=== PATIENT | female | born 1940 | race Caucasian/White ===

== ENCOUNTER 2017-09-24 23:02 | Inpatient (IN) ==
[2017-09-25] MEDS ORDERED: SODIUM CHLORIDE 0.9% 2,150 ML IV ONE (00:23)
[2017-09-25] MEDS ORDERED: CEFEPIME 2,000 MG in SODIUM CHLORIDE 0.9% 100 ML IV STA (00:25)
[2017-09-25] MEDS ORDERED: VANCOMYCIN INJ 1,000 MG in SODIUM CHLORIDE 0.9% 250 ML IV STA (00:25)
[2017-09-25] MEDS ORDERED: VANCOMYCIN 1,000 MG VIAL ONE (01:02)
[2017-09-25 01:06] LABS: Basophils % 0.2 % (0.0-0.8); Eosinophils % 0.2 % (0.00-10.9); Hematocrit 34.6 VOL% (35.7-47.0); Immature Granulocytes % 2.1 %; Immature Granulocytes Absolute 0.42 #; Lymphocytes # 0.8 10*3/uL (1.4-4.0); Lymphocytes % 3.9 % (21.3-54.2); Mean Corpuscular HGB Conc 34.7 GM/DL (32-36); Mean Corpuscular Hemoglobin 32 PG (27-34); Mean Corpuscular Volume 90.8 FL (87-102); Mean Platelet Volume 13.7 FL (9.6-12.0); Monocytes # 1.4 10*3/uL (0.11-0.8); Monocytes % 6.8 % (1.7-12.7); Neutrophils # 17.5 10*3/uL (1.4-7.4); Neutrophils % 86.8 % (38.7-73.9); Platelet Count 132 T/CUMM (130-400); Red Blood Count 3.81 MC/CUMM (3.8-5.5); Red Cell Distribution Width 14.6 % (9.3-17.3); White Blood Count 20.2 T/CUMM (4-12)
[2017-09-25 01:20] LABS: Lactic Acid 0.9 MMOL/L (0.4-2.0)
[2017-09-25 01:27] LABS: Albumin 2.5 G/DL (3.4-5.0); Bilirubin,Total 0.9 MG/DL (0.2-1.0); Calcium 7.7 MG/DL (8.5-10.1); Osmolality,Calculated 284.8 MOS/KG (273-304); Potassium 3.5 MMOL/L (3.5-5.1); Total Protein 5.6 G/DL (6.4-8.3)
[2017-09-25] MEDS ORDERED: ONDANSETRON 4 MG/2 ML VIAL ONE (07:54)
[2017-09-25] MEDS: SODIUM CHLORIDE 0.9% 1,000 ML IV SCH (08:10)
[2017-09-25] MEDS: ONDANSETRON 4 MG/2 ML VIAL IV PRN (08:10)
[2017-09-25 10:33] LABS: Apearance,Urine SLIGHTLY HAZY (Clear); Glucose,Urine (UA) Negative (Negative); Ketones,Urine Negative (Negative); Nitrite,Urine Negative (Negative); Protein,Urine Negative; Urine Color Yellow (Yellow); Urine Specific Gravity 1.004 (1.001-1.035)
[2017-09-25 10:34] LABS: Bacteria,Urine Occasional /HPF (Few); Bilirubin,Urine Negative (Negative); Blood, Urine Moderate mg/dL (Negative); RBC,Urine 6 /HPF (0-4); Squamous Epithelial Cell,Urine Occasional /HPF (0-10); Urine Urobilinogen < 2.0 EU/DL (0.2-1.0); WBC,Urine 20 /HPF (0-6)
[2017-09-25 10:35] LABS: Mucus,Urine Occasional /LPF (Occasional); Waxy Casts,Urine Few /LPF (<1)
[2017-09-25 10:47] LABS: Hypochromasia Slight; Macrocytosis 1+; Platelet Estimate Decreased
[2017-09-25] MEDS ORDERED: ACETAMINOPHEN 325 MG TABLET PO PRN (11:45)
[2017-09-25] MEDS ORDERED: DOCUSATE SODIUM 100 MG CAPSULE PO SCH (21:00)
[2017-09-25] MEDS ORDERED: ZALEPLON 5 MG CAPSULE PO ONE (23:37)
[2017-09-26 04:52] LABS: Basophils % 0.2 % (0.0-0.8); Eosinophils # 0.2 10*3/uL (0.0-0.87); Eosinophils % 1.2 % (0.00-10.9); Hematocrit 32.1 VOL% (35.7-47.0); Hemoglobin 10.9 GM/DL (12.0-16.0); Immature Granulocytes Absolute 0.15 #; Lymphocytes # 0.8 10*3/uL (1.4-4.0); Lymphocytes % 5.4 % (21.3-54.2); Mean Corpuscular Hemoglobin 31 PG (27-34); Mean Corpuscular Volume 91.7 FL (87-102); Mean Platelet Volume 13.3 FL (9.6-12.0); Monocytes # 0.9 10*3/uL (0.11-0.8); Monocytes % 5.9 % (1.7-12.7); Neutrophils # 13.4 10*3/uL (1.4-7.4); Neutrophils % 86.3 % (38.7-73.9); Platelet Count 142 T/CUMM (130-400); Red Cell Distribution Width 14.6 % (9.3-17.3); White Blood Count 15.5 T/CUMM (4-12)
[2017-09-26 05:27] LABS: Albumin 2.4 G/DL (3.4-5.0); Bilirubin,Total 1.1 MG/DL (0.2-1.0); Calcium 8.1 MG/DL (8.5-10.1); Potassium 3.4 MMOL/L (3.5-5.1); Total Protein 5.6 G/DL (6.4-8.3)
[2017-09-26] MEDS ORDERED: HYPROMELLOSE BOTH EYES PRN (09:10)
[2017-09-26] MEDS ORDERED: LORazepam 0.5 MG TABLET PO PRN (09:10)
[2017-09-26] MEDS ORDERED: CYANOCOBALAMIN 1000 MCG/1 ML VIAL IM ONE (09:13)
[2017-09-26] MEDS ORDERED: LEVOFLOXACIN INJ 500 MG in PREMIX 1 EACH IV SCH (09:30)
[2017-09-26] MEDS: SODIUM CHLORIDE 0.9% 1,000 ML IV SCH ×2 (10:15→16:55)
[2017-09-26] MEDS: cloNIDine 0.1 MG TABLET PO SCH ×2 (10:16→22:22)
[2017-09-26] MEDS: amLODIPine 5 MG TABLET PO SCH (10:16)
[2017-09-26] MEDS: PANTOPRAZOLE 40 MG TABLET PO SCH (10:16)
[2017-09-26] MEDS: PREGABALIN 75 MG CAPSULE PO SCH ×2 (10:16→22:22)
[2017-09-26] MEDS: PIOGLITAZONE 15 MG TABLET PO SCH (10:16)
[2017-09-26] MEDS: EZETIMIBE 10 MG TABLET PO SCH (10:16)
[2017-09-26] MEDS: CLORAZEPATE 3.75 MG TABLET PO SCH ×2 (10:21→22:22)
[2017-09-26] MEDS: ONDANSETRON 4 MG/2 ML VIAL IV PRN ×2 (14:06→17:47)
[2017-09-26] MEDS: ZALEPLON 5 MG CAPSULE PO SCH (22:22)
[2017-09-27] MEDS: SODIUM CHLORIDE 0.9% 1,000 ML IV SCH ×2 (04:03→18:53)
[2017-09-27 05:59] LABS: Basophils % 0.3 % (0.0-0.8); Eosinophils # 0.3 10*3/uL (0.0-0.87); Eosinophils % 3.2 % (0.00-10.9); Hematocrit 29.9 VOL% (35.7-47.0); Hemoglobin 9.9 GM/DL (12.0-16.0); Immature Granulocytes % 0.8 %; Immature Granulocytes Absolute 0.08 #; Mean Corpuscular HGB Conc 33.1 GM/DL (32-36); Mean Corpuscular Hemoglobin 31 PG (27-34); Mean Corpuscular Volume 92.6 FL (87-102); Monocytes # 0.7 10*3/uL (0.11-0.8); Monocytes % 6.7 % (1.7-12.7); Neutrophils # 8.2 10*3/uL (1.4-7.4); Platelet Count 163 T/CUMM (130-400); Red Blood Count 3.23 MC/CUMM (3.8-5.5); Red Cell Distribution Width 14.6 % (9.3-17.3); White Blood Count 10.4 T/CUMM (4-12)
[2017-09-27 06:26] LABS: Calcium 8.2 MG/DL (8.5-10.1); Magnesium 1.9 MG/DL (1.8-2.4); Osmolality,Calculated 288.7 MOS/KG (273-304)
[2017-09-27] MEDS ORDERED: CEFEPIME 1,000 MG in SYRINGE 1 EACH IV SCH (08:30)
[2017-09-27] MEDS: EZETIMIBE 10 MG TABLET PO SCH (10:04)
[2017-09-27] MEDS: PREGABALIN 75 MG CAPSULE PO SCH ×2 (10:04→22:05)
[2017-09-27] MEDS: cloNIDine 0.1 MG TABLET PO SCH ×2 (10:05→22:05)
[2017-09-27] MEDS: LEVOFLOXACIN INJ 250 MG in PREMIX 1 EACH IV SCH (10:05)
[2017-09-27] MEDS: PANTOPRAZOLE 40 MG TABLET PO SCH (10:05)
[2017-09-27] MEDS: amLODIPine 5 MG TABLET PO SCH (10:05)
[2017-09-27] MEDS: PIOGLITAZONE 15 MG TABLET PO SCH (10:05)
[2017-09-27] MEDS: CLORAZEPATE 3.75 MG TABLET PO SCH ×2 (10:05→22:05)
[2017-09-27] MEDS: CEFEPIME 1,000 MG in SYRINGE 1 EACH IV SCH ×2 (12:30→22:08)
[2017-09-27] MEDS: ONDANSETRON 4 MG/2 ML VIAL IV PRN (14:31)
[2017-09-27] MEDS: ZALEPLON 5 MG CAPSULE PO SCH (22:04)
[2017-09-28] MEDS: SODIUM CHLORIDE 0.9% 1,000 ML IV SCH ×2 (01:18→08:11)
[2017-09-28 07:53] LABS: Basophils % 0.3 % (0.0-0.8); Eosinophils # 0.3 10*3/uL (0.0-0.87); Eosinophils % 3.9 % (0.00-10.9); Hematocrit 32.3 VOL% (35.7-47.0); Hemoglobin 10.6 GM/DL (12.0-16.0); Immature Granulocytes % 0.7 %; Immature Granulocytes Absolute 0.06 #; Lymphocytes # 0.8 10*3/uL (1.4-4.0); Lymphocytes % 9.3 % (21.3-54.2); Mean Corpuscular HGB Conc 32.8 GM/DL (32-36); Mean Corpuscular Hemoglobin 31 PG (27-34); Mean Corpuscular Volume 94.4 FL (87-102); Mean Platelet Volume 12.6 FL (9.6-12.0); Monocytes # 0.5 10*3/uL (0.11-0.8); Monocytes % 6.2 % (1.7-12.7); Neutrophils % 79.6 % (38.7-73.9); Platelet Count 195 T/CUMM (130-400); Red Blood Count 3.42 MC/CUMM (3.8-5.5); Red Cell Distribution Width 14.6 % (9.3-17.3); White Blood Count 8.8 T/CUMM (4-12)
[2017-09-28] MEDS: CLORAZEPATE 3.75 MG TABLET PO SCH (08:08)
[2017-09-28] MEDS: amLODIPine 5 MG TABLET PO SCH (08:08)
[2017-09-28] MEDS: cloNIDine 0.1 MG TABLET PO SCH (08:08)
[2017-09-28] MEDS: PANTOPRAZOLE 40 MG TABLET PO SCH (08:08)
[2017-09-28] MEDS: EZETIMIBE 10 MG TABLET PO SCH (08:08)
[2017-09-28] MEDS: PIOGLITAZONE 15 MG TABLET PO SCH (08:08)
[2017-09-28] MEDS: LEVOFLOXACIN INJ 250 MG in PREMIX 1 EACH IV SCH (08:08)
[2017-09-28] MEDS: PREGABALIN 75 MG CAPSULE PO SCH (08:08)
[2017-09-28] MEDS: CEFEPIME 1,000 MG in SYRINGE 1 EACH IV SCH (09:33)
[2017-09-28 11:48] VITALS: BP 166/75
== END 2017-09-28 14:10 | disposition home health service (06) | DRG 872 ==
LOC: EDBD → EDUNIT# → N.ED 23:02 → N.TELES 23:02
PROVIDERS: ADMIT Family Medicine; ATTEND Family Medicine

== ENCOUNTER 2017-10-28 04:19 | Inpatient (IN) ==
[2017-10-28 05:15] LABS: Apearance,Urine CLEAR (Clear); Bilirubin,Urine Negative (Negative); Blood, Urine Negative (Negative); Glucose,Urine (UA) Negative (Negative); Ketones,Urine Negative (Negative); Nitrite,Urine Negative (Negative); Protein,Urine Negative; RBC,Urine <1 /HPF (0-4); Urine Color Straw (Yellow); Urine Specific Gravity 1.006 (1.001-1.035); Urine Urobilinogen < 2.0 EU/DL (0.2-1.0); WBC,Urine 1 /HPF (0-6)
[2017-10-28 05:27] LABS: Albumin 4.2 G/DL (3.4-5.0); Bilirubin,Total 0.9 MG/DL (0.2-1.0); Calcium 9.6 MG/DL (8.5-10.1); Osmolality,Calculated 287.1 MOS/KG (273-304); Potassium 3.5 MMOL/L (3.5-5.1); Total Protein 7.6 G/DL (6.4-8.3)
[2017-10-28 05:28] LABS: Lactic Acid 1.6 MMOL/L (0.4-2.0)
[2017-10-28 05:58] LABS: Basophils # 0.1 10*3/uL (0.0-0.2); Basophils % 0.5 % (0.0-0.8); Eosinophils % 10.2 % (0.00-10.9); Hematocrit 39.2 VOL% (35.7-47.0); Hemoglobin 13.1 GM/DL (12.0-16.0); Immature Granulocytes % 0.4 %; Immature Granulocytes Absolute 0.04 #; Lymphocytes # 0.8 10*3/uL (1.4-4.0); Lymphocytes % 8.4 % (21.3-54.2); Mean Corpuscular HGB Conc 33.4 GM/DL (32-36); Mean Corpuscular Hemoglobin 31 PG (27-34); Mean Corpuscular Volume 93.3 FL (87-102); Mean Platelet Volume 13.3 FL (9.6-12.0); Monocytes # 0.5 10*3/uL (0.11-0.8); Monocytes % 5.1 % (1.7-12.7); Neutrophils # 7.4 10*3/uL (1.4-7.4); Neutrophils % 75.4 % (38.7-73.9); Platelet Count 170 T/CUMM (130-400); Red Cell Distribution Width 14.3 % (9.3-17.3); White Blood Count 9.9 T/CUMM (4-12)
[2017-10-28] MEDS ORDERED: MORPHINE 2 MG/1 ML SYRINGE IV STA (06:50)
[2017-10-28] MEDS ORDERED: ONDANSETRON 4 MG/2 ML VIAL IV STA (06:50)
[2017-10-28] MEDS ORDERED: SODIUM CHLORIDE 0.9% 1,000 ML IV STA (06:52)
[2017-10-28] MEDS ORDERED: LABETALOL 20 MG/4 ML SYRINGE IV STA (06:52)
[2017-10-28] MEDS ORDERED: ONDANSETRON 4 MG/2 ML VIAL IV PRN (06:59)
[2017-10-28] MEDS ORDERED: ACETAMINOPHEN 325 MG TABLET PO PRN (06:59)
[2017-10-28] MEDS ORDERED: LABETALOL 20 MG/4 ML SYRINGE IV ONE (07:04)
[2017-10-28] MEDS ORDERED: NOREPINEPHRINE 8 MG in SODIUM CHLORIDE 0.9% 242 ML IV SCH (07:30)
[2017-10-28] MEDS: DEXTROSE 5% NACL 0.9% 1,000 ML IV SCH ×2 (09:49→21:09)
[2017-10-28] MEDS ORDERED: LORazepam 1 MG TABLET PO PRN (10:01)
[2017-10-28] MEDS: QUEtiapine 25 MG TABLET PO SCH ×2 (10:28→21:11)
[2017-10-28] MEDS: PANTOPRAZOLE 40 MG TABLET PO SCH (11:44)
[2017-10-28] MEDS: PREGABALIN 75 MG CAPSULE PO SCH ×2 (11:44→21:10)
[2017-10-28] MEDS: amLODIPine 5 MG TABLET PO SCH (11:44)
[2017-10-28] MEDS: OLMESARTAN 20 MG TABLET PO SCH (11:44)
[2017-10-28] MEDS: DICLOFENAC 1% GEL 100 GM TUBE TOP SCH ×2 (14:25→21:12)
[2017-10-28] MEDS: cloNIDine 0.1 MG TABLET PO SCH (21:11)
[2017-10-28] MEDS: LATANOPROST 0.005% OPH SOLN 2.5 ML BOTTLE BOTH EYES SCH (21:12)
[2017-10-29] MEDS: CLORAZEPATE 3.75 MG TABLET PO SCH ×3 (01:31→22:18)
[2017-10-29] MEDS: DEXTROSE 5% NACL 0.9% 1,000 ML IV SCH ×2 (01:31→15:28)
[2017-10-29] MEDS: ZALEPLON 5 MG CAPSULE PO SCH ×2 (01:31→20:31)
[2017-10-29] MEDS ORDERED: CARBOXYMETHYLCELLULOSE 1% OPH SOLN BOTH EYES PRN (07:00)
[2017-10-29 07:49] LABS: Calcium 7.9 MG/DL (8.5-10.1); Magnesium 1.9 MG/DL (1.8-2.4); Osmolality,Calculated 289.6 MOS/KG (273-304); Potassium 3.2 MMOL/L (3.5-5.1); Thyroid Stimulating Hormone 0.304 uIU/ml (0.358-3.74)
[2017-10-29 08:31] LABS: Basophils % 0.5 % (0.0-0.8); Eosinophils # 1.2 10*3/uL (0.0-0.87); Eosinophils % 19.1 % (0.00-10.9); Hematocrit 27.6 VOL% (35.7-47.0); Immature Granulocytes % 0.5 %; Immature Granulocytes Absolute 0.03 #; Lymphocytes # 1.9 10*3/uL (1.4-4.0); Lymphocytes % 30.2 % (21.3-54.2); Mean Corpuscular HGB Conc 32.6 GM/DL (32-36); Mean Corpuscular Hemoglobin 32 PG (27-34); Mean Corpuscular Volume 96.8 FL (87-102); Mean Platelet Volume 13.4 FL (9.6-12.0); Monocytes # 0.5 10*3/uL (0.11-0.8); Monocytes % 7.5 % (1.7-12.7); Neutrophils # 2.6 10*3/uL (1.4-7.4); Neutrophils % 42.2 % (38.7-73.9); Red Cell Distribution Width 14.5 % (9.3-17.3)
[2017-10-29 08:46] LABS: Platelet Count 122 T/CUMM (130-400); Red Blood Count 2.85 MC/CUMM (3.8-5.5); White Blood Count 6.1 T/CUMM (4-12)
[2017-10-29 08:59] LABS: Eosinophils 18 % (0-10); Hypochromasia 1+; Lymphocytes 24 % (20-55); Segmented Neutrophils 53 % (50-85); Total Cells Counted 100
[2017-10-29 09:00] LABS: Ovalocytes Few; Platelet Estimate Adequate
[2017-10-29 09:01] LABS: Microcytosis Slight
[2017-10-29] MEDS: PIOGLITAZONE 15 MG TABLET PO SCH (09:56)
[2017-10-29] MEDS: OLMESARTAN 20 MG TABLET PO SCH (09:57)
[2017-10-29] MEDS: MULTIVITAMIN (CENTRUM) TABLET PO SCH (09:57)
[2017-10-29] MEDS: cloNIDine 0.1 MG TABLET PO SCH ×2 (09:57→20:32)
[2017-10-29] MEDS: PREGABALIN 75 MG CAPSULE PO SCH ×2 (09:57→20:32)
[2017-10-29] MEDS: amLODIPine 5 MG TABLET PO SCH (09:57)
[2017-10-29] MEDS: DICLOFENAC 1% GEL 100 GM TUBE TOP SCH ×3 (09:57→20:39)
[2017-10-29] MEDS: EZETIMIBE 10 MG TABLET PO SCH (09:57)
[2017-10-29] MEDS: QUEtiapine 25 MG TABLET PO SCH ×2 (09:58→20:32)
[2017-10-29] MEDS: PANTOPRAZOLE 40 MG TABLET PO SCH (09:59)
[2017-10-29] MEDS: POTASSIUM CHLORIDE 10 MEQ TABLET PO SCH (13:49)
[2017-10-29] MEDS: LATANOPROST 0.005% OPH SOLN 2.5 ML BOTTLE BOTH EYES SCH (20:38)
[2017-10-30] MEDS: DEXTROSE 5% NACL 0.9% 1,000 ML IV SCH ×2 (00:32→10:35)
[2017-10-30] MEDS: MORPHINE 2 MG/1 ML SYRINGE IV PRN ×3 (04:44→18:46)
[2017-10-30 08:13] LABS: Basophils % 0.5 % (0.0-0.8); Eosinophils # 1.3 10*3/uL (0.0-0.87); Eosinophils % 21.7 % (0.00-10.9); Hematocrit 25.9 VOL% (35.7-47.0); Hemoglobin 8.5 GM/DL (12.0-16.0); Immature Granulocytes % 0.3 %; Immature Granulocytes Absolute 0.02 #; Lymphocytes # 1.7 10*3/uL (1.4-4.0); Mean Corpuscular HGB Conc 32.8 GM/DL (32-36); Mean Corpuscular Hemoglobin 32 PG (27-34); Mean Platelet Volume 13.3 FL (9.6-12.0); Monocytes # 0.4 10*3/uL (0.11-0.8); Monocytes % 6.3 % (1.7-12.7); Neutrophils # 2.4 10*3/uL (1.4-7.4); Neutrophils % 42.2 % (38.7-73.9); Platelet Count 112 T/CUMM (130-400); Red Blood Count 2.67 MC/CUMM (3.8-5.5); Red Cell Distribution Width 14.4 % (9.3-17.3); White Blood Count 5.8 T/CUMM (4-12)
[2017-10-30 08:35] LABS: Eosinophils 20 % (0-10); Hypochromasia 1+; Lymphocytes 31 % (20-55); Ovalocytes Slight; Segmented Neutrophils 43 % (50-85); Total Cells Counted 100
[2017-10-30 08:36] LABS: Microcytosis Slight; Platelet Estimate Adequate
[2017-10-30 08:38] LABS: Calcium 7.4 MG/DL (8.5-10.1); Magnesium 1.9 MG/DL (1.8-2.4); Osmolality,Calculated 290.4 MOS/KG (273-304); Potassium 3.6 MMOL/L (3.5-5.1)
[2017-10-30] MEDS: MULTIVITAMIN (CENTRUM) TABLET PO SCH (10:33)
[2017-10-30] MEDS: PREGABALIN 75 MG CAPSULE PO SCH ×2 (10:33→20:39)
[2017-10-30] MEDS: amLODIPine 5 MG TABLET PO SCH (10:33)
[2017-10-30] MEDS: OLMESARTAN 20 MG TABLET PO SCH (10:34)
[2017-10-30] MEDS: EZETIMIBE 10 MG TABLET PO SCH (10:34)
[2017-10-30] MEDS: cloNIDine 0.1 MG TABLET PO SCH ×2 (10:34→20:39)
[2017-10-30] MEDS: QUEtiapine 25 MG TABLET PO SCH ×2 (10:34→20:39)
[2017-10-30] MEDS: POTASSIUM CHLORIDE 10 MEQ TABLET PO SCH (10:34)
[2017-10-30] MEDS: PANTOPRAZOLE 40 MG TABLET PO SCH (10:34)
[2017-10-30] MEDS: PIOGLITAZONE 15 MG TABLET PO SCH (10:34)
[2017-10-30] MEDS: CLORAZEPATE 3.75 MG TABLET PO SCH ×2 (10:34→20:39)
[2017-10-30] MEDS ORDERED: DEXTROSE 5% NACL 0.45% 1,000 ML IV SCH (14:00)
[2017-10-30] MEDS: DICLOFENAC 1% GEL 100 GM TUBE TOP SCH ×3 (15:11→20:41)
[2017-10-30] MEDS ORDERED: MAGNESIUM HYDROXIDE SUSP 30 ML UDCUP PO PRN (16:40)
[2017-10-30] MEDS: ZALEPLON 5 MG CAPSULE PO SCH (20:39)
[2017-10-30] MEDS: LATANOPROST 0.005% OPH SOLN 2.5 ML BOTTLE BOTH EYES SCH (20:50)
[2017-10-31 06:40] LABS: Basophils % 0.3 % (0.0-0.8); Eosinophils # 1.4 10*3/uL (0.0-0.87); Eosinophils % 22.9 % (0.00-10.9); Hematocrit 24.4 VOL% (35.7-47.0); Immature Granulocytes % 0.3 %; Immature Granulocytes Absolute 0.02 #; Lymphocytes # 1.9 10*3/uL (1.4-4.0); Lymphocytes % 31.2 % (21.3-54.2); Mean Corpuscular HGB Conc 32.8 GM/DL (32-36); Mean Corpuscular Hemoglobin 32 PG (27-34); Mean Corpuscular Volume 97.2 FL (87-102); Mean Platelet Volume 13.9 FL (9.6-12.0); Monocytes # 0.4 10*3/uL (0.11-0.8); Monocytes % 6.5 % (1.7-12.7); NRBC # 0.02 10*3/uL; Neutrophils # 2.3 10*3/uL (1.4-7.4); Neutrophils % 38.8 % (38.7-73.9); Platelet Count 108 T/CUMM (130-400); Red Blood Count 2.51 MC/CUMM (3.8-5.5); Red Cell Distribution Width 14.4 % (9.3-17.3)
[2017-10-31 06:53] LABS: Calcium 7.6 MG/DL (8.5-10.1); Magnesium 1.7 MG/DL (1.8-2.4); Osmolality,Calculated 289.6 MOS/KG (273-304); Potassium 3.5 MMOL/L (3.5-5.1)
[2017-10-31 07:03] LABS: Eosinophils 24 % (0-10); Hypochromasia 1+; Lymphocytes 28 % (20-55); Microcytosis Slight; Ovalocytes Slight; Platelet Estimate Decreased; Segmented Neutrophils 42 % (50-85); Total Cells Counted 100
[2017-10-31] MEDS ORDERED: SODIUM CHLORIDE 0.9% 1,000 ML IV PRN (08:39)
[2017-10-31] MEDS ORDERED: ACETAMINOPHEN 325 MG TABLET PO ONE (09:10)
[2017-10-31] MEDS ORDERED: diphenhydrAMINE 25 MG/10 ML UDCUP PO ONE (09:10)
[2017-10-31] MEDS: OLMESARTAN 20 MG TABLET PO SCH (09:48)
[2017-10-31] MEDS: POTASSIUM CHLORIDE 10 MEQ TABLET PO SCH (09:48)
[2017-10-31] MEDS: QUEtiapine 25 MG TABLET PO SCH (09:48)
[2017-10-31] MEDS: amLODIPine 5 MG TABLET PO SCH (09:48)
[2017-10-31] MEDS: PANTOPRAZOLE 40 MG TABLET PO SCH (09:48)
[2017-10-31] MEDS: CLORAZEPATE 3.75 MG TABLET PO SCH (09:49)
[2017-10-31] MEDS: DICLOFENAC 1% GEL 100 GM TUBE TOP SCH (09:49)
[2017-10-31] MEDS: cloNIDine 0.1 MG TABLET PO SCH (09:49)
[2017-10-31] MEDS: PIOGLITAZONE 15 MG TABLET PO SCH (09:49)
[2017-10-31] MEDS: MULTIVITAMIN (CENTRUM) TABLET PO SCH (09:49)
[2017-10-31] MEDS: PREGABALIN 75 MG CAPSULE PO SCH (09:49)
[2017-10-31] MEDS: EZETIMIBE 10 MG TABLET PO SCH (09:49)
[2017-10-31 14:26] VITALS: BP 147/56
== END 2017-10-31 16:15 | disposition home or self-care (01) | DRG 884 ==
LOC: EDBD → EDUNIT# → N.ED 04:19 → N.EDINP 06:59 → N.2E 08:45
PROVIDERS: ADMIT Family Medicine; ATTEND Family Medicine

== ENCOUNTER 2022-06-05 04:48 | Inpatient (IN) ==
[2022-06-05] MEDS ORDERED: SODIUM CHLORIDE 0.9% 500 ML IV STA (05:13)
[2022-06-05 06:01] LABS: Eosinophils # 0.2 10*3/uL (0.0-0.87); Eosinophils % 2.9 % (0.00-10.9); Hematocrit 39.8 VOL% (35.7-47.0); Hemoglobin 12.6 GM/DL (12.0-16.0); Immature Granulocytes % 0.3 %; Immature Granulocytes Absolute 0.02 #; Lymphocytes # 0.4 10*3/uL (1.4-4.0); Lymphocytes % 5.7 % (21.3-54.2); Mean Corpuscular HGB Conc 31.7 GM/DL (32-36); Mean Corpuscular Volume 97.5 FL (87-102); Mean Platelet Volume 13.5 FL (9.6-12.0); Monocytes # 0.2 10*3/uL (0.11-0.8); Monocytes % 2.6 % (1.7-12.7); Neutrophils % 88.5 % (38.7-73.9); Red Blood Count 4.08 MC/CUMM (3.8-5.5); Red Cell Distribution Width 14.6 % (9.3-17.3); White Blood Count 6.8 T/CUMM (4-12)
[2022-06-05 06:12] LABS: INR 0.9; PT Patient Result 10.3 SECS (10.5-12.0)
[2022-06-05 06:15] LABS: Platelet Count 81 T/CUMM (130-400)
[2022-06-05 06:21] LABS: Alanine Aminotransferase 18 U/L (13-56); Albumin 2.7 G/DL (3.4-5.0); Alkaline Phosphatase 57 U/L (45-117); Aspartate Amino Transferase 19 U/L (0-37); Bilirubin,Total < 0.39 MG/DL (0.20-1.00); Blood Urea Nitrogen 31 MG/DL (7-18); Calcium 7.6 MG/DL (8.5-10.1); Carbon Dioxide 22 MMOL/L (21-32); Chloride 114 MMOL/L (98-107); Eosinophils 1 % (0-10); Glucose 95 MG/DL (74-106); Lymphocytes 6 % (20-55); Osmolality,Calculated 292.8 MOS/KG (273-304); Platelet Estimate Decreased; Potassium 3.7 MMOL/L (3.5-5.1); Sodium 144 MMOL/L (136-145); Total Cells Counted 100; Total Protein 5.6 G/DL (6.4-8.2)
[2022-06-05] MEDS ORDERED: ONDANSETRON 4 MG/2 ML VIAL IV PRN (06:42)
[2022-06-05] MEDS ORDERED: ACETAMINOPHEN 325 MG TABLET PO PRN (06:42)
[2022-06-05] MEDS ORDERED: methylPREDNISolone SOD SUC 40 MG/1 ML VIAL IV STA (07:55)
[2022-06-05] MEDS ORDERED: LEVOFLOXACIN INJ 500 MG/100 ML PREMIX IV ONE (07:56)
[2022-06-05] MEDS ORDERED: LORazepam 1 MG TABLET PO PRN (10:40)
[2022-06-05] MEDS: PANTOPRAZOLE 40 MG TABLET PO SCH (10:49)
[2022-06-05] MEDS: DOCUSATE SODIUM 100 MG CAPSULE PO SCH ×2 (10:49→22:17)
[2022-06-05] MEDS: LACTATED RINGERS 1,000 ML IV SCH (10:58)
[2022-06-05] MEDS ORDERED: ENOXAPARIN 30 MG/0.3 ML SYRINGE SUBCUT SCH (13:30)
[2022-06-05] MEDS: OXYBUTYNIN 5 MG TABLET PO SCH ×2 (16:44→22:17)
[2022-06-05] MEDS: LORATADINE 10 MG TABLET PO SCH (16:44)
[2022-06-06] MEDS: LACTATED RINGERS 1,000 ML IV SCH (03:58)
[2022-06-06 04:00] LABS: Eosinophils % 0.3 % (0.00-10.9); Hematocrit 32.4 VOL% (35.7-47.0); Hemoglobin 10.2 GM/DL (12.0-16.0); Immature Granulocytes % 0.4 %; Immature Granulocytes Absolute 0.03 #; Lymphocytes # 0.7 10*3/uL (1.4-4.0); Lymphocytes % 8.7 % (21.3-54.2); Mean Corpuscular HGB Conc 31.5 GM/DL (32-36); Mean Corpuscular Volume 97.3 FL (87-102); Mean Platelet Volume 12.7 FL (9.6-12.0); Monocytes # 0.4 10*3/uL (0.11-0.8); Monocytes % 4.6 % (1.7-12.7); Platelet Count 78 T/CUMM (130-400); Red Blood Count 3.33 MC/CUMM (3.8-5.5); Red Cell Distribution Width 14.5 % (9.3-17.3); White Blood Count 7.6 T/CUMM (4-12)
[2022-06-06 04:14] LABS: Calcium 7.9 MG/DL (8.5-10.1); Osmolality,Calculated 282.3 MOS/KG (273-304); Potassium 4.1 MMOL/L (3.5-5.1)
[2022-06-06 04:18] LABS: Alanine Aminotransferase 14 U/L (13-56); Albumin 2.5 G/DL (3.4-5.0); Alkaline Phosphatase 45 U/L (45-117); Aspartate Amino Transferase 17 U/L (0-37); Bilirubin,Total < 0.39 MG/DL (0.20-1.00); Blood Urea Nitrogen 20 MG/DL (7-18); Calcium 8.3 MG/DL (8.5-10.1); Carbon Dioxide 21 MMOL/L (21-32); Chloride 113 MMOL/L (98-107); Glucose 83 MG/DL (74-106); Osmolality,Calculated 282.3 MOS/KG (273-304); Potassium 4.3 MMOL/L (3.5-5.1); Sodium 141 MMOL/L (136-145); Total Protein 5.2 G/DL (6.4-8.2)
[2022-06-06 04:18] LABS: Platelet Estimate Decreased
[2022-06-06] MEDS: LOSARTAN 50 MG TABLET PO SCH (09:25)
[2022-06-06] MEDS: methylPREDNISolone SOD SUC 125 MG/2 ML VIAL IV SCH ×2 (09:25→18:01)
[2022-06-06] MEDS: FAMOTIDINE 20 MG TABLET PO SCH (09:26)
[2022-06-06] MEDS: ASCORBIC ACID 500 MG TABLET PO SCH (09:26)
[2022-06-06] MEDS: CHOLECALCIFEROL 5,000 UNIT TABLET PO SCH (09:26)
[2022-06-06] MEDS: PANTOPRAZOLE 40 MG TABLET PO SCH (09:26)
[2022-06-06] MEDS: DOCUSATE SODIUM 100 MG CAPSULE PO SCH ×2 (09:26→22:10)
[2022-06-06] MEDS: MONTELUKAST 10 MG TABLET PO SCH (09:26)
[2022-06-06] MEDS: AMITRIPTYLINE 10 MG TABLET PO SCH (09:26)
[2022-06-06] MEDS: LORATADINE 10 MG TABLET PO SCH (09:26)
[2022-06-06] MEDS: SERTRALINE 100 MG TABLET PO SCH (09:27)
[2022-06-06] MEDS: OXYBUTYNIN 5 MG TABLET PO SCH ×3 (09:33→22:10)
[2022-06-06 10:21] LABS: Free T4 (Free Thyroxine) 0.78 NG/DL (0.76-1.46); Thyroid Stimulating Hormone 0.841 uIU/ml (0.358-3.74)
[2022-06-06] MEDS: METOPROLOL TARTRATE 25 MG TABLET PO SCH ×2 (11:18→22:10)
[2022-06-06] MEDS: diphenhydrAMINE CAP 25 MG CAPSULE PO SCH (22:10)
[2022-06-07] MEDS: methylPREDNISolone SOD SUC 125 MG/2 ML VIAL IV SCH ×3 (00:04→18:47)
[2022-06-07 06:06] LABS: Hematocrit 34.1 VOL% (35.7-47.0); Immature Granulocytes % 0.7 %; Immature Granulocytes Absolute 0.05 #; Lymphocytes # 0.6 10*3/uL (1.4-4.0); Lymphocytes % 8.2 % (21.3-54.2); Mean Corpuscular HGB Conc 32.3 GM/DL (32-36); Mean Corpuscular Volume 97.2 FL (87-102); Mean Platelet Volume 13.1 FL (9.6-12.0); Monocytes # 0.1 10*3/uL (0.11-0.8); Monocytes % 1.9 % (1.7-12.7); Neutrophils % 89.2 % (38.7-73.9); Platelet Count 84 T/CUMM (130-400); Red Blood Count 3.51 MC/CUMM (3.8-5.5); Red Cell Distribution Width 14.7 % (9.3-17.3); White Blood Count 6.7 T/CUMM (4-12)
[2022-06-07 06:23] LABS: Alanine Aminotransferase 24 U/L (13-56); Alkaline Phosphatase 49 U/L (45-117); Aspartate Amino Transferase 25 U/L (0-37); Bilirubin,Total < 0.39 MG/DL (0.20-1.00); Blood Urea Nitrogen 21 MG/DL (7-18); Calcium 8.9 MG/DL (8.5-10.1); Carbon Dioxide 25 MMOL/L (21-32); Chloride 112 MMOL/L (98-107); Glucose 185 MG/DL (74-106); Potassium 4.3 MMOL/L (3.5-5.1); Sodium 143 MMOL/L (136-145); Total Protein 6.3 G/DL (6.4-8.2)
[2022-06-07 06:24] LABS: Platelet Estimate Decreased
[2022-06-07] MEDS ORDERED: AZITHROMYCIN 250 MG TABLET PO ONE (09:43)
[2022-06-07] MEDS: LACTATED RINGERS 1,000 ML IV SCH (11:54)
[2022-06-07] MEDS: LORATADINE 10 MG TABLET PO SCH (11:55)
[2022-06-07] MEDS: DOCUSATE SODIUM 100 MG CAPSULE PO SCH ×2 (11:55→22:24)
[2022-06-07] MEDS: OXYBUTYNIN 5 MG TABLET PO SCH ×3 (11:56→22:24)
[2022-06-07] MEDS: LOSARTAN 50 MG TABLET PO SCH (11:56)
[2022-06-07] MEDS: FAMOTIDINE 20 MG TABLET PO SCH (11:57)
[2022-06-07] MEDS: METOPROLOL TARTRATE 25 MG TABLET PO SCH ×2 (11:57→22:24)
[2022-06-07] MEDS: PANTOPRAZOLE 40 MG TABLET PO SCH (11:57)
[2022-06-07] MEDS: AMITRIPTYLINE 10 MG TABLET PO SCH (11:57)
[2022-06-07] MEDS: ASCORBIC ACID 500 MG TABLET PO SCH (11:58)
[2022-06-07] MEDS: MONTELUKAST 10 MG TABLET PO SCH (11:58)
[2022-06-07] MEDS: SERTRALINE 100 MG TABLET PO SCH (11:58)
[2022-06-07] MEDS: CHOLECALCIFEROL 5,000 UNIT TABLET PO SCH (11:58)
[2022-06-07] MEDS ORDERED: ALBUTEROL 1.25 MG/3 ML NEB RESP TX PRN (13:06)
[2022-06-07] MEDS ORDERED: FUROSEMIDE 20 MG/2 ML VIAL IV ONE (13:30)
[2022-06-07] MEDS ORDERED: LORazepam 1 MG TABLET PO ONE (13:30)
[2022-06-07 13:32] LABS: Arterial Base Excess iSTAT -3 MMOL/L (-2.5-2.5); Arterial Bicarbonate iSTAT 21.8 MMOL/L (20-26); Arterial O2 Saturation iSTAT 94 % (95-100); Arterial PCO2 iSTAT 36 MM HG (35-48); Arterial PO2 iSTAT 71 MM HG (80-95); Arterial Total CO2 iSTAT 23 MMO/L (23-27); Arterial pH iSTAT 7.387 (7.35-7.45)
[2022-06-07] MEDS: cloNIDine 0.1 MG TABLET PO PRN (18:20)
[2022-06-07] MEDS: cefTRIAXone 1,000 MG VIAL IM SCH (18:21)
[2022-06-07] MEDS: LORazepam 1 MG TABLET PO SCH ×2 (18:21→22:24)
[2022-06-07 18:33] LABS: Hyaline Casts,Urine 1 /LPF (0-3); Squamous Epithelial Cell,Urine Occasional /HPF (0-10)
[2022-06-07 18:34] LABS: Bilirubin,Urine Negative (Negative); Blood, Urine Trace mg/dL (Negative); Glucose,Urine (UA) Negative (Negative); Ketones,Urine Negative (Negative); Nitrite,Urine Negative (Negative); Protein,Urine 100 mg/dL (Negative); Urine Appearance Clear (Clear); Urine Color Yellow (Yellow); Urine Urobilinogen 0.2 eU/dL (<2.0); Urine pH 5.5 (4.5-8.0)
[2022-06-07] MEDS ORDERED: APIXABAN 2.5 MG TABLET PO SCH (21:00)
[2022-06-07] MEDS: diphenhydrAMINE CAP 25 MG CAPSULE PO SCH (22:24)
[2022-06-07] MEDS: methylPREDNISolone SOD SUC 40 MG/1 ML VIAL IV SCH (22:24)
[2022-06-08] MEDS: LACTATED RINGERS 1,000 ML IV SCH ×2 (01:48→16:08)
[2022-06-08] MEDS: methylPREDNISolone SOD SUC 40 MG/1 ML VIAL IV SCH ×3 (04:45→21:39)
[2022-06-08 06:29] LABS: Basophils % 0.1 % (0.0-0.8); Immature Granulocytes % 1.1 %; Immature Granulocytes Absolute 0.12 #; Lymphocytes # 0.6 10*3/uL (1.4-4.0); Lymphocytes % 5.1 % (21.3-54.2); Mean Corpuscular HGB Conc 33.3 GM/DL (32-36); Mean Corpuscular Volume 93.3 FL (87-102); Mean Platelet Volume 12.9 FL (9.6-12.0); Monocytes # 0.5 10*3/uL (0.11-0.8); Monocytes % 4.6 % (1.7-12.7); Neutrophils % 89.1 % (38.7-73.9); Platelet Count 122 T/CUMM (130-400); Red Blood Count 3.86 MC/CUMM (3.8-5.5); Red Cell Distribution Width 14.6 % (9.3-17.3); White Blood Count 11.2 T/CUMM (4-12)
[2022-06-08] MEDS ORDERED: hydrALAZINE 20 MG/1 ML VIAL IV ONE (08:15)
[2022-06-08] MEDS ORDERED: FUROSEMIDE 20 MG/2 ML VIAL IV ONE (08:16)
[2022-06-08] MEDS: PANTOPRAZOLE 40 MG TABLET PO SCH (09:29)
[2022-06-08] MEDS: LORazepam 1 MG TABLET PO SCH ×3 (09:29→21:40)
[2022-06-08] MEDS: DOCUSATE SODIUM 100 MG CAPSULE PO SCH ×2 (09:30→21:39)
[2022-06-08] MEDS: SERTRALINE 100 MG TABLET PO SCH (09:30)
[2022-06-08] MEDS: ASCORBIC ACID 500 MG TABLET PO SCH (09:30)
[2022-06-08] MEDS: cloNIDine 0.1 MG TABLET PO PRN (09:30)
[2022-06-08] MEDS: FAMOTIDINE 20 MG TABLET PO SCH (09:30)
[2022-06-08] MEDS: METOPROLOL TARTRATE 25 MG TABLET PO SCH ×2 (09:30→21:39)
[2022-06-08] MEDS: LORATADINE 10 MG TABLET PO SCH (09:30)
[2022-06-08] MEDS: AMITRIPTYLINE 10 MG TABLET PO SCH (09:31)
[2022-06-08] MEDS: CHOLECALCIFEROL 5,000 UNIT TABLET PO SCH (09:31)
[2022-06-08] MEDS: LOSARTAN 50 MG TABLET PO SCH (09:31)
[2022-06-08] MEDS: MONTELUKAST 10 MG TABLET PO SCH (09:31)
[2022-06-08] MEDS: OXYBUTYNIN 5 MG TABLET PO SCH ×3 (09:34→21:40)
[2022-06-08] MEDS: amLODIPine 5 MG TABLET PO SCH (13:45)
[2022-06-08] MEDS: ASPIRIN EC 81 MG TABLET PO SCH (13:45)
[2022-06-08] MEDS: FUROSEMIDE 40 MG/4 ML VIAL IV SCH (16:42)
[2022-06-08] MEDS: cefTRIAXone 1,000 MG VIAL IM SCH (18:36)
[2022-06-08] MEDS: hydrALAZINE 10 MG TABLET PO SCH (21:39)
[2022-06-08] MEDS: diphenhydrAMINE CAP 25 MG CAPSULE PO SCH (21:39)
[2022-06-09] MEDS: methylPREDNISolone SOD SUC 40 MG/1 ML VIAL IV SCH ×3 (03:36→21:25)
[2022-06-09 05:28] LABS: Basophils % 0.2 % (0.0-0.8); Hematocrit 37.1 VOL% (35.7-47.0); Hemoglobin 12.2 GM/DL (12.0-16.0); Immature Granulocytes % 1.5 %; Immature Granulocytes Absolute 0.16 #; Lymphocytes # 0.5 10*3/uL (1.4-4.0); Lymphocytes % 4.6 % (21.3-54.2); Mean Corpuscular HGB Conc 32.9 GM/DL (32-36); Mean Corpuscular Volume 93.7 FL (87-102); Mean Platelet Volume 12.6 FL (9.6-12.0); Monocytes # 0.5 10*3/uL (0.11-0.8); Monocytes % 5.1 % (1.7-12.7); Neutrophils % 88.6 % (38.7-73.9); Platelet Count 131 T/CUMM (130-400); Red Blood Count 3.96 MC/CUMM (3.8-5.5); Red Cell Distribution Width 14.3 % (9.3-17.3); White Blood Count 10.5 T/CUMM (4-12)
[2022-06-09 05:49] LABS: Albumin 2.7 G/DL (3.4-5.0); Bilirubin,Total 0.8 MG/DL (0.20-1.00); Calcium 8.8 MG/DL (8.5-10.1); Osmolality,Calculated 289.1 MOS/KG (273-304); Total Protein 6.4 G/DL (6.4-8.2)
[2022-06-09 06:31] LABS: Lymphocytes 5 % (20-55); Total Cells Counted 100
[2022-06-09 06:32] LABS: Platelet Estimate Adequate
[2022-06-09] MEDS: AMITRIPTYLINE 10 MG TABLET PO SCH (09:13)
[2022-06-09] MEDS: ASCORBIC ACID 500 MG TABLET PO SCH (09:13)
[2022-06-09] MEDS: SERTRALINE 100 MG TABLET PO SCH (09:13)
[2022-06-09] MEDS: DOCUSATE SODIUM 100 MG CAPSULE PO SCH ×2 (09:13→21:21)
[2022-06-09] MEDS: MONTELUKAST 10 MG TABLET PO SCH (09:13)
[2022-06-09] MEDS: hydrALAZINE 10 MG TABLET PO SCH ×3 (09:14→21:21)
[2022-06-09] MEDS: LOSARTAN 50 MG TABLET PO SCH (09:14)
[2022-06-09] MEDS: LORATADINE 10 MG TABLET PO SCH (09:14)
[2022-06-09] MEDS: METOPROLOL TARTRATE 25 MG TABLET PO SCH ×2 (09:14→21:21)
[2022-06-09] MEDS: FAMOTIDINE 20 MG TABLET PO SCH (09:14)
[2022-06-09] MEDS: OXYBUTYNIN 5 MG TABLET PO SCH ×3 (09:14→21:21)
[2022-06-09] MEDS: PANTOPRAZOLE 40 MG TABLET PO SCH (09:15)
[2022-06-09] MEDS: ASPIRIN EC 81 MG TABLET PO SCH (09:15)
[2022-06-09] MEDS: CHOLECALCIFEROL 5,000 UNIT TABLET PO SCH (09:15)
[2022-06-09] MEDS: AZITHROMYCIN 250 MG TABLET PO SCH (09:15)
[2022-06-09] MEDS: LORazepam 1 MG TABLET PO SCH ×3 (09:15→21:21)
[2022-06-09] MEDS: FUROSEMIDE 40 MG/4 ML VIAL IV SCH (09:15)
[2022-06-09] MEDS: cloNIDine 0.1 MG TABLET PO PRN (09:15)
[2022-06-09] MEDS: amLODIPine 5 MG TABLET PO SCH (09:16)
[2022-06-09] MEDS: amLODIPine 10 MG TABLET PO SCH (09:17)
[2022-06-09] MEDS: FUROSEMIDE 40 MG TABLET PO SCH (09:33)
[2022-06-09] MEDS: cefTRIAXone 1,000 MG VIAL IM SCH (16:42)
[2022-06-09] MEDS: diphenhydrAMINE CAP 25 MG CAPSULE PO SCH (21:21)
[2022-06-10] MEDS: methylPREDNISolone SOD SUC 40 MG/1 ML VIAL IV SCH ×2 (04:06→17:44)
[2022-06-10] MEDS ORDERED: DEXTROMETHORPHAN ER 6 MG/ML 90 ML/BOTTLE PO PRN (08:39)
[2022-06-10] MEDS: CHOLECALCIFEROL 5,000 UNIT TABLET PO SCH (09:39)
[2022-06-10] MEDS: FAMOTIDINE 20 MG TABLET PO SCH (09:39)
[2022-06-10] MEDS: SERTRALINE 100 MG TABLET PO SCH (09:39)
[2022-06-10] MEDS: ASCORBIC ACID 500 MG TABLET PO SCH (09:39)
[2022-06-10] MEDS: hydrALAZINE 10 MG TABLET PO SCH ×3 (09:40→22:09)
[2022-06-10] MEDS: ASPIRIN EC 81 MG TABLET PO SCH (09:40)
[2022-06-10] MEDS: MONTELUKAST 10 MG TABLET PO SCH (09:40)
[2022-06-10] MEDS: LORATADINE 10 MG TABLET PO SCH (09:40)
[2022-06-10] MEDS: LORazepam 1 MG TABLET PO SCH ×3 (09:40→22:09)
[2022-06-10] MEDS: AZITHROMYCIN 250 MG TABLET PO SCH (09:40)
[2022-06-10] MEDS: METOPROLOL TARTRATE 25 MG TABLET PO SCH ×2 (09:40→22:09)
[2022-06-10] MEDS: FUROSEMIDE 40 MG TABLET PO SCH (09:40)
[2022-06-10] MEDS: amLODIPine 10 MG TABLET PO SCH (09:40)
[2022-06-10] MEDS: AMITRIPTYLINE 10 MG TABLET PO SCH (09:40)
[2022-06-10] MEDS: LOSARTAN 50 MG TABLET PO SCH (09:41)
[2022-06-10] MEDS: OXYBUTYNIN 5 MG TABLET PO SCH ×3 (09:41→22:09)
[2022-06-10] MEDS: PANTOPRAZOLE 40 MG TABLET PO SCH (09:41)
[2022-06-10] MEDS: DOCUSATE SODIUM 100 MG CAPSULE PO SCH ×2 (09:41→22:09)
[2022-06-10] MEDS: cefTRIAXone 1,000 MG VIAL IM SCH (17:44)
[2022-06-10] MEDS: diphenhydrAMINE CAP 25 MG CAPSULE PO SCH (22:09)
[2022-06-11 05:15] LABS: Basophils % 0.2 % (0.0-0.8); Eosinophils % 0.1 % (0.00-10.9); Hematocrit 39.6 VOL% (35.7-47.0); Hemoglobin 12.9 GM/DL (12.0-16.0); Immature Granulocytes % 3.7 %; Immature Granulocytes Absolute 0.38 #; Lymphocytes # 0.8 10*3/uL (1.4-4.0); Lymphocytes % 7.5 % (21.3-54.2); Mean Corpuscular HGB Conc 32.6 GM/DL (32-36); Mean Corpuscular Volume 93.4 FL (87-102); Mean Platelet Volume 12.4 FL (9.6-12.0); Monocytes # 0.9 10*3/uL (0.11-0.8); Monocytes % 8.6 % (1.7-12.7); Neutrophils % 79.9 % (38.7-73.9); Platelet Count 205 T/CUMM (130-400); Red Blood Count 4.24 MC/CUMM (3.8-5.5); White Blood Count 10.3 T/CUMM (4-12)
[2022-06-11 05:35] LABS: Albumin 2.6 G/DL (3.4-5.0); Bilirubin,Total 0.4 MG/DL (0.20-1.00); Calcium 8.6 MG/DL (8.5-10.1); Osmolality,Calculated 291.4 MOS/KG (273-304); Potassium 3.6 MMOL/L (3.5-5.1); Total Protein 6.3 G/DL (6.4-8.2)
[2022-06-11] MEDS: methylPREDNISolone SOD SUC 40 MG/1 ML VIAL IV SCH ×2 (05:40→17:11)
[2022-06-11] MEDS: OXYBUTYNIN 5 MG TABLET PO SCH ×3 (10:16→21:35)
[2022-06-11] MEDS: LORazepam 1 MG TABLET PO SCH ×3 (10:26→21:34)
[2022-06-11] MEDS: LORATADINE 10 MG TABLET PO SCH (10:26)
[2022-06-11] MEDS: hydrALAZINE 10 MG TABLET PO SCH ×3 (10:26→21:35)
[2022-06-11] MEDS: ASPIRIN EC 81 MG TABLET PO SCH (10:26)
[2022-06-11] MEDS: DOCUSATE SODIUM 100 MG CAPSULE PO SCH ×2 (10:27→21:34)
[2022-06-11] MEDS: AMITRIPTYLINE 10 MG TABLET PO SCH (10:27)
[2022-06-11] MEDS: LOSARTAN 50 MG TABLET PO SCH (10:27)
[2022-06-11] MEDS: METOPROLOL TARTRATE 25 MG TABLET PO SCH ×2 (10:27→21:35)
[2022-06-11] MEDS: FUROSEMIDE 40 MG TABLET PO SCH (10:27)
[2022-06-11] MEDS: FAMOTIDINE 20 MG TABLET PO SCH (10:27)
[2022-06-11] MEDS: CHOLECALCIFEROL 5,000 UNIT TABLET PO SCH (10:27)
[2022-06-11] MEDS: MONTELUKAST 10 MG TABLET PO SCH (10:27)
[2022-06-11] MEDS: ASCORBIC ACID 500 MG TABLET PO SCH (10:27)
[2022-06-11] MEDS: SERTRALINE 100 MG TABLET PO SCH (10:27)
[2022-06-11] MEDS: amLODIPine 10 MG TABLET PO SCH (10:27)
[2022-06-11] MEDS: AZITHROMYCIN 250 MG TABLET PO SCH (10:28)
[2022-06-11] MEDS: PANTOPRAZOLE 40 MG TABLET PO SCH (10:28)
[2022-06-11] MEDS: cefTRIAXone 1,000 MG VIAL IM SCH (17:12)
[2022-06-11] MEDS: diphenhydrAMINE CAP 25 MG CAPSULE PO SCH (21:35)
[2022-06-12] MEDS: methylPREDNISolone SOD SUC 40 MG/1 ML VIAL IV SCH (03:51)
[2022-06-12] MEDS: CHOLECALCIFEROL 5,000 UNIT TABLET PO SCH (09:23)
[2022-06-12] MEDS: LOSARTAN 50 MG TABLET PO SCH (09:23)
[2022-06-12] MEDS: AMITRIPTYLINE 10 MG TABLET PO SCH (09:23)
[2022-06-12] MEDS: DOCUSATE SODIUM 100 MG CAPSULE PO SCH ×2 (09:24→21:34)
[2022-06-12] MEDS: LORazepam 1 MG TABLET PO SCH ×2 (09:24→21:33)
[2022-06-12] MEDS: hydrALAZINE 10 MG TABLET PO SCH ×4 (09:24→21:34)
[2022-06-12] MEDS: amLODIPine 10 MG TABLET PO SCH (09:25)
[2022-06-12] MEDS: LORATADINE 10 MG TABLET PO SCH (09:25)
[2022-06-12] MEDS: ASCORBIC ACID 500 MG TABLET PO SCH (09:25)
[2022-06-12] MEDS: FUROSEMIDE 20 MG TABLET PO SCH (09:25)
[2022-06-12] MEDS: ASPIRIN EC 81 MG TABLET PO SCH (09:25)
[2022-06-12] MEDS: MONTELUKAST 10 MG TABLET PO SCH (09:26)
[2022-06-12] MEDS: METOPROLOL TARTRATE 25 MG TABLET PO SCH ×2 (09:26→21:34)
[2022-06-12] MEDS: PANTOPRAZOLE 40 MG TABLET PO SCH (09:26)
[2022-06-12] MEDS: OXYBUTYNIN 5 MG TABLET PO SCH ×3 (09:26→21:35)
[2022-06-12] MEDS: SERTRALINE 100 MG TABLET PO SCH (09:26)
[2022-06-12] MEDS: FAMOTIDINE 20 MG TABLET PO SCH (09:28)
[2022-06-12] MEDS: predniSONE 10 MG TABLET PO SCH (21:34)
[2022-06-12] MEDS: diphenhydrAMINE CAP 25 MG CAPSULE PO SCH (21:34)
[2022-06-12] MEDS: QUEtiapine 25 MG TABLET PO SCH (21:34)
[2022-06-13] MEDS ORDERED: cefTRIAXone 1,000 MG in SODIUM CHLORIDE 0.9% 100 ML IV ONE (07:09)
[2022-06-13] MEDS: FAMOTIDINE 20 MG TABLET PO SCH (09:45)
[2022-06-13] MEDS: METOPROLOL TARTRATE 25 MG TABLET PO SCH ×2 (09:45→21:57)
[2022-06-13] MEDS: SERTRALINE 100 MG TABLET PO SCH (09:45)
[2022-06-13] MEDS: FUROSEMIDE 20 MG TABLET PO SCH (09:45)
[2022-06-13] MEDS: AMITRIPTYLINE 10 MG TABLET PO SCH (09:45)
[2022-06-13] MEDS: PREGABALIN 75 MG CAPSULE PO SCH (09:45)
[2022-06-13] MEDS: ASCORBIC ACID 500 MG TABLET PO SCH (09:45)
[2022-06-13] MEDS: OXYBUTYNIN 5 MG TABLET PO SCH ×3 (09:46→21:57)
[2022-06-13] MEDS: LOSARTAN 50 MG TABLET PO SCH (09:46)
[2022-06-13] MEDS: PANTOPRAZOLE 40 MG TABLET PO SCH (09:46)
[2022-06-13] MEDS: LORATADINE 10 MG TABLET PO SCH (09:46)
[2022-06-13] MEDS: ASPIRIN EC 81 MG TABLET PO SCH (09:46)
[2022-06-13] MEDS: amLODIPine 10 MG TABLET PO SCH (09:46)
[2022-06-13] MEDS: predniSONE 10 MG TABLET PO SCH ×2 (09:47→21:57)
[2022-06-13] MEDS: QUEtiapine 25 MG TABLET PO SCH ×2 (09:47→21:57)
[2022-06-13] MEDS: MONTELUKAST 10 MG TABLET PO SCH (09:47)
[2022-06-13] MEDS: hydrALAZINE 10 MG TABLET PO SCH ×4 (09:47→21:57)
[2022-06-13] MEDS: DOCUSATE SODIUM 100 MG CAPSULE PO SCH ×2 (09:47→21:57)
[2022-06-13] MEDS: CHOLECALCIFEROL 5,000 UNIT TABLET PO SCH (09:47)
[2022-06-13] MEDS: diphenhydrAMINE CAP 25 MG CAPSULE PO SCH (21:57)
[2022-06-13] MEDS: LORazepam 1 MG TABLET PO SCH (21:57)
[2022-06-14] MEDS ORDERED: TUBERCULIN SKIN TEST 0.1 ML SYRINGE INTRADERM ONE (09:01)
[2022-06-14 09:52] LABS: Basophils % 0.2 % (0.0-0.8); Eosinophils # 0.3 10*3/uL (0.0-0.87); Eosinophils % 1.9 % (0.00-10.9); Hematocrit 41.5 VOL% (35.7-47.0); Hemoglobin 13.3 GM/DL (12.0-16.0); Immature Granulocytes % 2.7 %; Immature Granulocytes Absolute 0.45 #; Lymphocytes # 0.9 10*3/uL (1.4-4.0); Lymphocytes % 5.4 % (21.3-54.2); Mean Corpuscular Volume 97.2 FL (87-102); Mean Platelet Volume 11.8 FL (9.6-12.0); Monocytes # 0.9 10*3/uL (0.11-0.8); Monocytes % 5.3 % (1.7-12.7); Neutrophils % 84.5 % (38.7-73.9); Platelet Count 315 T/CUMM (130-400); Red Blood Count 4.27 MC/CUMM (3.8-5.5); Red Cell Distribution Width 14.3 % (9.3-17.3); White Blood Count 16.9 T/CUMM (4-12)
[2022-06-14] MEDS: FUROSEMIDE 20 MG TABLET PO SCH (09:57)
[2022-06-14] MEDS: predniSONE 10 MG TABLET PO SCH ×2 (09:57→21:55)
[2022-06-14] MEDS: MONTELUKAST 10 MG TABLET PO SCH (09:57)
[2022-06-14] MEDS: ASCORBIC ACID 500 MG TABLET PO SCH (09:57)
[2022-06-14] MEDS: PANTOPRAZOLE 40 MG TABLET PO SCH (09:57)
[2022-06-14] MEDS: DOCUSATE SODIUM 100 MG CAPSULE PO SCH ×2 (09:57→21:57)
[2022-06-14] MEDS: AMITRIPTYLINE 10 MG TABLET PO SCH (09:57)
[2022-06-14] MEDS: LOSARTAN 50 MG TABLET PO SCH (09:57)
[2022-06-14] MEDS: OXYBUTYNIN 5 MG TABLET PO SCH ×3 (09:57→21:55)
[2022-06-14] MEDS: CHOLECALCIFEROL 5,000 UNIT TABLET PO SCH (09:57)
[2022-06-14] MEDS: hydrALAZINE 10 MG TABLET PO SCH ×4 (09:57→21:57)
[2022-06-14] MEDS: PREGABALIN 75 MG CAPSULE PO SCH (09:58)
[2022-06-14] MEDS: QUEtiapine 25 MG TABLET PO SCH ×2 (09:58→22:04)
[2022-06-14] MEDS: LORATADINE 10 MG TABLET PO SCH (09:58)
[2022-06-14] MEDS: FAMOTIDINE 20 MG TABLET PO SCH (09:58)
[2022-06-14] MEDS: SERTRALINE 100 MG TABLET PO SCH (09:58)
[2022-06-14] MEDS: METOPROLOL TARTRATE 25 MG TABLET PO SCH ×2 (09:58→21:55)
[2022-06-14] MEDS: ASPIRIN EC 81 MG TABLET PO SCH (09:58)
[2022-06-14] MEDS: amLODIPine 10 MG TABLET PO SCH (09:59)
[2022-06-14 10:08] LABS: Calcium 8.5 MG/DL (8.5-10.1); Osmolality,Calculated 295.3 MOS/KG (273-304); Potassium 4.2 MMOL/L (3.5-5.1)
[2022-06-14] MEDS ORDERED: cefTRIAXone 1,000 MG in SODIUM CHLORIDE 0.9% 100 ML IV ONE (11:56)
[2022-06-14] MEDS: LEVOFLOXACIN 500 MG TABLET PO SCH (13:08)
[2022-06-14] MEDS: LORazepam 1 MG TABLET PO SCH (21:55)
[2022-06-14] MEDS: diphenhydrAMINE CAP 25 MG CAPSULE PO SCH (21:55)
[2022-06-15 07:50] VITALS: BP 141/77
[2022-06-15] MEDS: QUEtiapine 25 MG TABLET PO SCH (08:31)
[2022-06-15] MEDS: AMITRIPTYLINE 10 MG TABLET PO SCH (08:32)
[2022-06-15] MEDS: ASCORBIC ACID 500 MG TABLET PO SCH (08:32)
[2022-06-15] MEDS: CHOLECALCIFEROL 5,000 UNIT TABLET PO SCH (08:32)
[2022-06-15] MEDS: ASPIRIN EC 81 MG TABLET PO SCH (08:32)
[2022-06-15] MEDS: predniSONE 10 MG TABLET PO SCH (08:32)
[2022-06-15] MEDS: LOSARTAN 50 MG TABLET PO SCH (08:32)
[2022-06-15] MEDS: FUROSEMIDE 20 MG TABLET PO SCH (08:32)
[2022-06-15] MEDS: LEVOFLOXACIN 500 MG TABLET PO SCH (08:32)
[2022-06-15] MEDS: PREGABALIN 75 MG CAPSULE PO SCH (08:32)
[2022-06-15] MEDS: MONTELUKAST 10 MG TABLET PO SCH (08:32)
[2022-06-15] MEDS: DOCUSATE SODIUM 100 MG CAPSULE PO SCH (08:32)
[2022-06-15] MEDS: SERTRALINE 100 MG TABLET PO SCH (08:32)
[2022-06-15] MEDS: hydrALAZINE 10 MG TABLET PO SCH (08:32)
[2022-06-15] MEDS: amLODIPine 10 MG TABLET PO SCH (08:33)
[2022-06-15] MEDS: METOPROLOL TARTRATE 25 MG TABLET PO SCH (08:33)
[2022-06-15] MEDS: PANTOPRAZOLE 40 MG TABLET PO SCH (08:33)
[2022-06-15] MEDS: LORATADINE 10 MG TABLET PO SCH (08:33)
[2022-06-15] MEDS: OXYBUTYNIN 5 MG TABLET PO SCH (08:33)
[2022-06-15] MEDS: FAMOTIDINE 20 MG TABLET PO SCH (08:33)
== END 2022-06-15 11:40 | DRG 177 ==
LOC: N.ED 04:48 → N.EDINP 06:42 → N.TELEN 09:57
PROVIDERS: ADMIT Family Medicine; ATTEND Family Medicine